=== PATIENT | female | born 1980 | race Caucasian/White ===

== ENCOUNTER 2016-09-13 16:29 | Emergency (ER) | payer OTHER ==
[~2016-09-13] VITALS: Ht 165.1 cm; Wt 70.4 kg
[~2016-09-13 16:29] MED LIST: BACOPA PO; MULT1CAP33 PO; NORE0.3523 PO; OMPR20CCR PO; ONDA4TAB6 PO; RANI75TA21 PO
[2016-09-13 16:54] VITALS: BP 121/72; PULSE 66; RESP 16; O2SAT 99
[2016-09-13 18:22] LABS: Mean Corpuscular Hemoglobin 31.1 pg (27.0-35.0)
--- NOTE | 2016-09-13 18:59 | ED.REPORT ---
HPI- Female Date of Service Sep 13, 2016 ED Provider: Ra La DO A 6 week 36 year old female with a history of anxiety but no history of miscarriage is referred to the ED from Urgent Care due to vaginal bleeding. The pt was seen six days ago and had an ultrasound indicating that she is six weeks with twins. She began bleeding five days ago with small clots, and the bleeding has continued since. This is accompanied by "pulling" abdominal pain and headache, but the pt denies other symptoms. Nursing Notes Stated Complaint: BLEEDING WITH /SENT FROM [facility] Chief Complaint: Female Abdominal Pain Nursing Notes Reviewed: Yes Allergies: Coded Allergies: Sulfa (Sulfonamide Antibiotics) (Verified Allergy, Severe, FLAHERTY WITH TOPICAL, 01/16/15) amoxicillin (Verified Allergy, Severe, RASH, 01/16/15) Penicillins (Verified Allergy, Unknown, 04/15/13) Scheduled ([Bacopa]) 1 TAB PO DAILY Multivitamin (Multivitamins) 1 Each Capsule 1 EACH PO DAILY Norethindrone (Lyza) 0.35 Mg Tablet 0.35 MG PO DAILY Scheduled PRN Omeprazole (Prilosec) 20 Mg Capcr 20 MG PO DAILY PRN PRN For Epigastric Distress Ondansetron (Zofran) 4 Mg Tablet 4 MG PO Q4H PRN PRN For Nausea Ranitidine (Zantac OTC) 75 Mg Tablet 75 MG PO PRN For Epigastric Distress General Time Seen by MD: 18:58 Chief Complaint Vaginal bleeding... Hx Obtained From: Patient Arrived By: Walk-in Sudden in Onset?: No Onset Occurred: 5 days ago Symptom Duration: Since onset Recent Healthcare: No recent hospitalization, Recent doctor visit Similar Sx Previous: No Past Medical History Past Medical History Gastritis Anxiety Depression Past Surgical History lacrimal sac removed Family History Uterine fibroids Smoking History Never Smoker Social History Alcohol Use: "Social" Drug Use: Denies drug use Other Social History: Good social support, Ambulatory Status Independent Review of Systems GI: Reports: Abdominal pain ("pulling"), Denies: Vomiting Female: Reports: Vaginal bleeding - abnl Musculoskeletal: Denies: Back pain, Neck pain Skin: Denies Rash Neurologic: Reports: Headache Complete sys rev & neg: except as marked. Physical Exam Initial Vital Signs Vital Signs (First) Date Time Temp Pulse Resp B/P Pulse Ox O2 Delivery O2 Flow Rate FiO2 6/26/17 16:54 37.1 66 16 121/72 99 09/13/16 20:55 Room Air Initial VS: Reviewed Female Genitourinary: Exam deferred General/Constitutional: Awake, Alert Respiratory / Chest: Atraumatic, Breath sounds NL, Breath sounds = bilat, No respiratory distress Cardiovascular: Heart rate NL, Regular rhythm, Heart sounds NL Abdomen: Atraumatic, Soft, Non-tender Back: Atraumatic, Full range of motion Skin: Atraumatic, Color NL, No rash, Warm, Dry Head / Eyes: Atraumatic, Normocephalic, PERRL, EOMI ENT: Atraumatic, Airway patent, Mucous membranes moist Neck: Atraumatic, Supple, Full range of motion Upper Extremity / MS: Atraumatic, Full range of motion Lower Extremity / Pelvis / MS: Atraumatic, Full range of motion Neurologic: Oriented X3, Speech NL, No motor deficits, No sensory deficits Psychiatric: Affect NL, Mood NL Interpretation & Diagnostics Interpretation & Diagnostics: OB US: IMPRESSION: 1. Enlarged somewhat distorted gestational sac it compared to prior exam. Previously identified poles are less distinct. Measurements approximate fetus A at 6 weeks one day and fetus B at 6 weeks zero days. No heart tones are identified. Overall appearance is suggestive of demise. However, recommend correlation with beta hCG levels and continued interval ultrasound followup. Dictated by: Brittany Spencer M.D. on 09/13/2016 at 22:06 Approved by: Brittany Spencer M.D. on 09/13/2016 at 22:08 Lab Results Interpretation Result Diagram: 09/13/16 1812 09/13/16 1812 Test 09/13/16 18:11 09/13/16 18:12 09/13/16 19:05 Hold Urine Received (Received) White Blood Count 6.0th/mm3 (3.8-10.1) Red Blood Count 4.41mil/mm3 (3.90-5.20) Hemoglobin 13.7g/dL (12.0-15.6) Hematocrit 39.7% (35.0-46.0) Mean Corpuscular Volume 90.0fL (81-100) Mean Corpuscular Hemoglobin 31.1pg (27.0-35.0) Mean Corpuscular Hemoglobin Concent 34.5% (32.0-37.0) Red Cell Distribution Width 12.5% (12.3-15.4) Platelet Count 180bil/L (150-400) Sodium Level 139mEq/L (134-144) Potassium Level 3.6mEq/L (3.5-5.2) Chloride Level 101mEq/L (97-108) Carbon Dioxide Level 24mmol/L (18-29) Blood Urea Nitrogen 10mg/dL (6-20) Creatinine 0.51mg/dL (0.57-1.00) Estimat Glomerular Filtration Rate 198mL/min (>59) Glucose Level 121mg/dL (60-99) Calcium Level 9.7mg/dL (8.5-10.1) Total Bilirubin 0.2mg/dL (0.0-1.2) Aspartate Amino Transf (AST/SGOT) 18U/L (0-50) Alanine Aminotransferase (ALT/SGPT) 14U/L (0-32) Alkaline Phosphatase 58U/L (25-150) Total Protein 7.7g/dL (6.4-8.4) Albumin 4.4g/dL (3.4-5.0) HCG Beta Subunit 9400mIU/mL Urine Color Yellow (YELLOW) Urine Appearance Clear (CLEAR,HAZY) Urine pH 7.0 (5.0-8.0) Urine Specific [place] 1.010 (1.003-1.035) Urine Protein Negativemg/dL (NEG,TRACE) Urine Glucose (UA) Negativemg/dL (NEGATIVE) Urine Ketones Negativemg/dL (NEGATIVE) Urine Occult Blood Moderate (NEGATIVE) Urine Nitrite Negative (NEGATIVE) Urine Bilirubin Negative (NEGATIVE) Urine Urobilinogen Normalmg/dL (NORMAL) Urine Leukocyte Esterase Negative (NEGATIVE) Urine RBC 0-2/hpf (0-2) Urine WBC 0-5/hpf (0-5) Urine Epithelial Cells Few/hpf (NONE-MOD) Urine Crystals Amorphous phosphates Urine Bacteria Few/hpf (NONE-FEW) Urine Hyaline Casts None/lpf (NONE) Urine Granular Casts None seen (NONE SEEN) Urine Waxy Casts None seen (NONE SEEN) Urine Red Blood Cell Casts None seen (NONE SEEN) Urine White Blood Cell Casts None seen (NONE SEEN) Urine Mucus None seen (None Seen) Urine Trichomonas None seen (NONE SEEN) Urine Yeast None (NONE SEEN) Urinalysis Comment None Urine Culture Reflexed Not indicated Pulse Oximetry Interpretation Pulse Oximetry Interpretation: 99% on room air Pulse Oximetry: Pulse Ox normal Re-Eval/Medical Decision Med Decision/Clinical Course Ultrasound results were discussed with Mrs. Strong. This is either very early twin gestation or demise. It is just too early to tell. Recommend ultrasound in about a week and follow-up on hCG. She is Rh+. We will refer her for a local obstetric follow-up. Source of Hx: Old records Re-Evaluation/Progress #1: Time of Eval: 21:44 Re-Evaluation/Progress Note: Pt rechecked, who is comfortable. The plan for further treatment is discussed. Re-Evaluation/Progress #2: Time of Eval: 20:10 Patient Status: Condition improved Re-Evaluation/Progress Note: Pt rechecked, who is resting comfortably. The diagnosis and plan for discharge are discussed. The pt understands and agrees with the plan. All questions are addressed at this time. Counseled Regarding: Diagnosis, Lab results, Need for follow-up, When/why to return to ED Discharge & Departure Impression: Primary Impression: Threatened miscarriage Disposition: Home Discharge Condition All VS Reviewed: Yes Condition: Stable Patient Instructions: Threatened Miscarriage (ED) Additional Instructions: You will need a follow up ultrasound and quantitative hCG this week. Call your primary care physician and DISPATCH CLERK in the morning to arrange a follow up appointments this week. Return to the emergency department if you develop any new or worsening symptoms such as worsening bleeding or cramping. Referrals: Pooja Brito (PCP) David Rodriguez MD Attestation Portions of this note were transcribed by Jacque Dupont. I, Dr. La personally performed the history, physical exam and medical decision-making; I reviewed and confirmed the accuracy of the information in the transcribed note. Signed by: Martha Salinas, 09/13/2016 and 2221. copies to: David Rodriguez MD; Pooja Brito Todd P DO Sep 13, 2016 18:59 JACQUE DUPONT Sep 13, 2016 19:10
[2016-09-13 19:51] LABS: APPEARANCE,URINE CLEAR (CLEAR,HAZY); COLOR,URINE YELLOW (YELLOW); OCCULT BLOOD,URINE MODERATE (NEGATIVE); UROBILINOGEN,URINE NORMAL (NORMAL)
[2016-09-13 20:55] VITALS: BP 103/69; PULSE 60; RESP 16; O2SAT 99
--- NOTE | 2016-09-13 22:09 | DRSVH ---
PROCEDURE: US OB<14 WEEKS FOR TWINS AND TRANSVAGINAL INDICATIONS: twin and vaginal bleeding OUTSIDE/PRIOR DATING DATA: Last menstrual period (LMP): 07/01/16. LMP-based estimated date of delivery (MIKE): 04/07/17 First dating scan (date and location): 09/09/16. Estimated date of delivery (MIKE) from first dating scan: . TECHNIQUE: Real-time scanning was performed of the fetuses and maternal pelvic organs, with image documentation. Endovaginal scanning: Performed for better visualization of the fetuses and maternal adnexal structu res. COMPARISON: [facility] Ultrasound, US, US OB<14 WKS+[email or web address]+TV, 09/09/2016, 15:28. [facility], US, US OB<14 WKS+TWINS+TV, 09/13/2016, 19:42. FINDINGS: General: A single gestational sac has become irregular in shape and somewhat enlarged compared to pr ior examination. There is poor visualization of bilateral yolk sacs. Embryo A: Previously identified pole is somewhat distorted. [place]-rump length of approximately 5 mm corresponding to 6 weeks one day. No heart rate is identified. Embryo B: Previous identified pole is somewhat distorted. [place]-rump length measures approximat josh 3 mm corresponding to 6 weeks zero days. No heart rate is identified. Measurement variability in dating: +/- 4 weeks by LMP, +/- 7 days by mean sac diameter (use before 6 weeks gestation if crown-rump length unable to be measured), +/- 5 days by crown-rump length (up to 8 weeks 6 days gestation), +/- 7 days by crown-rump length (up to 13 weeks 6 days gestation). Maternal organs: Ovaries are unremarkable. Limited images through the kidneys demonstrate no hydron ephrosis. IMPRESSION: 1. Enlarged somewhat distorted gestational sac it compared to prior exam. Previously identified poles are less distinct. Measurements approximate fetus A at 6 weeks one day and fetus B at 6 weeks zero days. No heart tones are identified. Overall appearance is suggestive of demise. However, recommend correlation with beta hCG levels and continued interval ultrasound followup. Dictated by: Brittany Spencer M.D. on 09/13/2016 at 22:06 Approved by: Brittany Spencer M.D. on 09/13/2016 at 22:08
[2016-09-13 22:26] VITALS: BP 109/63; PULSE 64; RESP 16; O2SAT 100
== END 2016-09-13 22:27 | disposition home or self-care (01) ==
LOC: SED 16:29
DX: O20.0 Threatened abortion (principal); Z3A.01 Less than 8 weeks gestation of pregnancy; Z88.0 Allergy status to penicillin; Z88.1 Allergy status to other antibiotic agents; Z88.2 Allergy status to sulfonamides